=== PATIENT | male | born 1980 | race Caucasian/White ===

== ENCOUNTER 2016-09-18 15:24 | Emergency (ER) | payer MEDICARE, MEDICAID ==
[~2016-09-18] VITALS: Ht 177.8 cm; Wt 127.3 kg
[~2016-09-18 15:24] MED LIST: CALC-190 PO; HYDR-3605 PO; METH5TAB3 PO; MULT-1018 PO; NABU500T PO; OXYC1TAB24 PO
[2016-09-18 15:28] VITALS: BP 135/92; PULSE 97; RESP 20; O2SAT 94
--- NOTE | 2016-09-18 15:45 | ED.REPORT ---
HPI-General Illness Date of Service Sep 18, 2016 ED Provider: Jass Sweeney MD Pt is a 35 y/o male w/ a hx of hemophilia A presenting to the ED due to port-a- cath complications onset 2 days ago. The pt has an 18 year old subcutaneous port -a-cath in his left upper arm and experienced a complication 2 days ago. He takes factor 8 as needed for subjective bleeding and he felt like he was having a bleed in his hip and when he went to administer it, he felt the medication infiltrate his skin. He has no other complaints or concerns at this time. He denies fever, chills, nausea, vomiting. Nursing Notes Stated Complaint: L ARM PORT ISSUES Chief Complaint: General Complaint Nursing Notes Reviewed: Yes Allergies: Coded Allergies: aspirin (Verified Adverse Reaction, Unknown, PT HEMOPHILLIC, 09/18/16) warfarin (Verified Adverse Reaction, Unknown, PT HEMOPHILLIC, 09/18/16) Uncoded Allergies: CRYOPACIPITATE (Adverse Reaction, Severe, COULDNT BREATH,AND RASH, 07/25/15 ) Scheduled Calcium Carb&Cit/Mag12/Vit D3 (Calcium 500 mg Tablet) 1 Each Tablet 1 EACH PO BID Methadone (Methadone) 5 Mg Tablet 5 MG PO BID Multivitamin (Multi Vitamin Daily) 1 Each Tablet 1 EACH PO DAILY Nabumetone (Nabumetone) 500 Mg Tablet 500 MG PO BID Scheduled PRN HydrOXYzine HCl (HydrOXYzine HCl) 10 Mg Tablet 10 MG PO BID PRN PRN For Itching oxyCODONE-Acetaminophen 5-325 mg (oxyCODONE-Acetaminophen 5-325 mg) 1 Each Tablet 1 TAB PO Q4H PRN PRN For Pain General Time Seen by MD: 15:34 Chief Complaint Other (Port complication) Hx Obtained From: Patient Arrived By: Walk-in Sudden in Onset?: No Onset Occurred: 2 days ago Symptom Duration: Since onset Severity: Current: No pain currently Severity: Maximum: No pain Past Medical History Past Medical History Hemophilia A - factor VIII deficiency Past Surgical History Port-a-cath Smoking History Never Smoker Review of Systems +port complication Full Review of Systems Constitutional: Denies: Chills, Fever GI: Denies: Nausea, Vomiting Complete sys rev & neg: except as marked. Physical Exam Vital Signs Vital Signs Date Time Temp Pulse Resp B/P Pulse Ox O2 Delivery O2 Flow Rate FiO2 2/3/17 15:28 36.2 97 20 135/92 94 Room Air Initial VS: Reviewed, Vital signs normal Head / Eyes: Atraumatic, Normocephalic, PERRL ENT: Mucous membranes moist, Conjunctiva normal, No scleral icterus Neck: Supple, Full range of motion Respiratory: Breath sounds normal, Clear to auscultation, No respiratory distress Cardiovascular: Regular rate & rhythm, Heart sounds normal, Intact distal pulses Abdomen / GI: Soft, Non-tender, No guarding, No rebound, No distention Skin: Warm, Dry, No cyanosis Neurologic: Alert, Oriented, Nonfocal Psychiatric: Mood/affect normal, Behavior normal, Normal thought content General/Constitutional: Awake, Alert, No acute distress, Well appearing, Cooperative, Not toxic appearing Appearance / Presentation: Positive: Obese Upper Extremities Upper Extremity / MS: Atraumatic, Full range of motion, No snuffbox tenderness , No erythema, No deformity, Neurologic intact, Vascular intact, No ligamentous injury, No compartment syndrome Port present left upper arm. Ecchymosis overlying port. Port is palpable beneath skin. No signs of infection. Interpretation & Diagnostics X-Ray Interpretation Xray Interpretation: Normal per radiologist - discussed via phone Study Performed: Dye study to assess port-a-cath function Interpretation / Wet Read by: Interpret - Radiologist, Discussed w radiologist Re-Eval/Medical Decision Med Decision/Clinical Course In summary, the patient is a 35-year-old male with a history of hemophilia A and left upper arm Port-A-Cath who presents due to concern that his Port-A-Cath is malfunctioning. He reports that several days ago he went to inject factor VIII into his Port-A-Cath and that he felt like he was infiltrating out around from the Port-A-Cath. He states that he has had this Port-A-Cath for about 18 years and has never had to have it replaced because it has never malfunctioned. Here in the emergency department the patient is afebrile with stable vital signs and examination as above. The presentation is somewhat concerning for disruption of the patient's Port-A-Cath which would not be surprising given that it is 18 years old. Therefore, I opted to obtain a dye study of his Port-A -Cath which demonstrated no disruption of his catheter and extravasation of dye. Updated patient has to these findings. He feels comfortable with discharge home. He will follow-up with his primary care physician next week to discuss his Port-A-Cath as it is quite old and may need to be replaced in the near future. Follow-up and return precautions were reviewed in detail he was discharged in good condition. There was no evidence of other complication with this Port-A-Cath or infection about the Port-A-Cath. Time of Eval: 16:46 Re-Evaluation/Progress Note: Pt rechecked. Informed pt of plan for treatment. Pt understands and agrees with plan for treatment. F/U and RTER warnings given. All questions addressed. Counseled Regarding: Diagnosis, Need for follow-up, When/why to return to ED Discharge & Departure Primary Impression: Vascular port complication Encounter type: initial encounter Qualified Code: T82.9XXA - Unspecified complication of cardiac and vascular prosthetic device, implant and graft, initial encounter Additional Impression: Hemophilia A Disposition: Home Discharge Condition All VS Reviewed: Yes Condition: Stable Patient Instructions: Implanted Venous Access Ports (ED) Additional Instructions: Your port-a-cath dye study today showed no abnormalities. It is unclear what caused the odd sensation you experienced. Follow-up with your primary care provider in 1 week. Return to the emergency department if you are unable to inject your Factor VIII. Referrals: [facility] Scribe Attestation Portions of this note were transcribed by Celio Calabrese. I, Dr. Sweeney personally performed the history, physical exam and medical decision-making; I reviewed and confirmed the accuracy of the information in the transcribed note. Signed by Carlos Eduardo Bassett, 09/18/16 - 1599 Jass Sweeney MD Sep 18, 2016 15:45 CELIO CALABRESE Sep 18, 2016 15:50
--- NOTE | 2016-09-18 16:58 | DRSVH ---
PROCEDURE: X-RAY CATHETER PATENCY STUDY ([id number]) INDICATIONS: Left arm port TECHNIQUE: Iodinated contrast was injected through the patient's existing left passport central veno us catheter, with real-time fluoroscopy performed. COMPARISON: None. FINDINGS: Child Development Teacher view of the chest demonstrates a left passport central venous catheter with tube tip projected over the lower SVC. With contrast administration, there is patency of the catheter noted a nd free spill of contrast media at the distal tube tip with antegrade flow of contrast media into the superior vena cava and the right atrium. There is no extravasation of contrast media along the port or the course of the catheter. The attending physician was personally present in the room during the examination. IMPRESSION: Normal appearance and patency of left passport central venous catheter. Dictated by: Hector Marina [facility] Interpreted: Digna tSanley MD on 09/18/2016 at 16:45 Transcribed by: TEJAL on 09/18/2016 at 16:49 Approved by: Digna Stanley MD, PhD on 09/18/2016 at 16:51
== END 2016-09-18 17:51 | disposition home or self-care (01) ==
LOC: SED 15:24
DX: T82.898A Other specified complication of vascular prosthetic devices, implants and grafts, initial encounter (principal); Y84.8 Other medical procedures as the cause of abnormal reaction of the patient, or of later complication, without mention of misadventure at the time of the procedure; Y93.89 Activity, other specified; Y92.89 Other specified places as the place of occurrence of the external cause; Y99.8 Other external cause status; D66 Hereditary factor VIII deficiency; Z88.8 Allergy status to other drugs, medicaments and biological substances
CPT/HCPCS: 36598; 99283; Q9967

== ENCOUNTER 2016-11-15 16:48 | Emergency (ER) | payer MEDICARE, MEDICAID ==
[~2016-11-15] VITALS: Ht 172.7 cm; Wt 129.6 kg
[2016-11-15 16:52] VITALS: BP 137/95; PULSE 84; RESP 14; O2SAT 95
--- NOTE | 2016-11-15 17:35 | ED.REPORT ---
HPI-General Illness Date of Service Nov 15, 2016 ED Provider: Dr. Quiroga Pt is a 35 year old male with a hx of Factor VIII deficiency and a recent port removal presenting to the ED complaining of left flank pain onset last night, increasing today. He denies any known injury. He states that he needs an infusion because he has bleeding in his back. He does report similar symptoms in the past. Pt usually self administers factor VIII once a month. Nursing Notes Stated Complaint: REQ A FACTOR 8 INFUSION Chief Complaint: General Complaint Nursing Notes Reviewed: Yes Allergies: Coded Allergies: aspirin (Verified Adverse Reaction, Unknown, PT HEMOPHILLIC, 09/18/16) warfarin (Verified Adverse Reaction, Unknown, PT HEMOPHILLIC, 09/18/16) Uncoded Allergies: CRYOPACIPITATE (Adverse Reaction, Severe, COULDNT BREATH,AND RASH, 07/25/15 ) Scheduled Calcium Carb&Cit/Mag12/Vit D3 (Calcium 500 mg Tablet) 1 Each Tablet 1 EACH PO BID Methadone (Methadone) 5 Mg Tablet 5 MG PO BID Multivitamin (Multi Vitamin Daily) 1 Each Tablet 1 EACH PO DAILY Nabumetone (Nabumetone) 500 Mg Tablet 500 MG PO BID Scheduled PRN HydrOXYzine HCl (HydrOXYzine HCl) 10 Mg Tablet 10 MG PO BID PRN PRN For Itching oxyCODONE-Acetaminophen 5-325 mg (oxyCODONE-Acetaminophen 5-325 mg) 1 Each Tablet 1 TAB PO Q4H PRN PRN For Pain General Time Seen by MD: 17:35 Chief Complaint Other Hx Obtained From: Patient Arrived By: Walk-in Sudden in Onset?: No Onset Occurred: Yesterday Symptom Duration: Since onset Quality: Painful Severity: Current: Moderate Severity: Maximum: Moderate Recent Healthcare: No recent doctor visit, No recent hospitalization Similar Sx Previous: Yes Past Medical History Past Medical History Hemophilia A - factor VIII deficiency Past Surgical History Port-a-cath Smoking History Never Smoker Ambulatory Status Independent Review of Systems Full Review of Systems Respiratory: Denies: Shortness of breath GI: Denies: Vomiting Musculoskeletal: Reports: Back pain Complete sys rev & neg: except as marked. Physical Exam Vital Signs Vital Signs Date Time Temp Pulse Resp B/P Pulse Ox O2 Delivery O2 Flow Rate FiO2 11/15/16 16:52 37.2 84 14 137/95 95 Room Air Initial VS: Reviewed Head / Eyes: Atraumatic, Normocephalic, PERRL ENT: Mucous membranes moist, Conjunctiva normal, No scleral icterus Neck: Supple, Non-tender, Full range of motion Respiratory: Breath sounds normal, Clear to auscultation, No respiratory distress Cardiovascular: Regular rate & rhythm, Heart sounds normal, Intact distal pulses Abdomen / GI: Soft, Non-tender, No guarding, No rebound, No distention Skin: Warm, Dry, No cyanosis Neurologic: Alert, Oriented, Nonfocal Psychiatric: Mood/affect normal, Behavior normal, Normal thought content General/Constitutional: Awake, Alert Appearance / Presentation: Positive: Obese Re-Eval/Medical Decision Time of Eval: 17:56 Patient Status: Condition improved Re-Evaluation/Progress Note: Discussed transfer to Dr. Carmona. Consultation : Call Returned at: 18:13 Note: Veronica hemophilia nurse specialist. Treat with 6400 units of Factor 8, will follow up in clinic tomorrow. Counseled Regarding: Diagnosis, Lab results, Need for follow-up, When/why to return to ED Discharge & Departure Primary Impression: Hemophilia A Disposition: Home Discharge Condition All VS Reviewed: Yes Condition: Improved Referrals: NOPCP (PCP) (Family) Care Transferred to: Transferred to Dr. Carmona Care Transferred at: 18:00 Carlos Eduardo Attestation Portions of this note were transcribed by Sulema Rogers. I, Dr. Quiroga personally performed the history, physical exam and medical decision-making; I reviewed and confirmed the accuracy of the information in the transcribed note. Signed by: Carlos Eduardo Hull, 11/15/2016 at 1756. Brock Quiroga DO Nov 15, 2016 17:35 SULEMA ROGERS Nov 15, 2016 17:49
[2016-11-15] MEDS ORDERED: Ondansetron 2 mg/mL 2 mL Inj IVPUSH ONE (17:50)
[2016-11-15] MEDS ORDERED: FACTOR VIII IV ONE (19:10)
[2016-11-15 20:14] VITALS: BP 152/96; PULSE 77; RESP 16; O2SAT 100
== END 2016-11-15 20:15 | disposition home or self-care (01) ==
LOC: SED 16:48
DX: D66 Hereditary factor VIII deficiency (principal); Z79.82 Long term (current) use of aspirin; Z79.01 Long term (current) use of anticoagulants

== ENCOUNTER 2016-12-10 12:14 | Emergency (ER) | payer MEDICARE, MEDICAID ==
[~2016-12-10] VITALS: Ht 177.8 cm; Wt 129.6 kg
[2016-12-10 12:15] VITALS: BP 158/104; PULSE 104; RESP 18; O2SAT 96
--- NOTE | 2016-12-10 12:17 | ED.REPORT ---
HPI-Extremity Problem Upper Date of Service Dec 10, 2016 ED Provider: Dr. Coy Pt is a 35 year old male with a hx of hemophilia presenting to the ED complaining of right shoulder pain onset last night. Associated symptoms include numbness and tingling, shooting pain, and swelling in his shoulder. He denies any other symptoms at this time. He reports that he must have slept wrong on his shoulder, and that this happens all the time. Pt has not administered any factor yet, just pain medication. Nursing Notes Stated Complaint: RIGHT SHOULDER PAIN Chief Complaint: General Complaint Nursing Notes Reviewed: Yes (Button, Gem[employer] not reconciled) Allergies: Coded Allergies: aspirin (Verified Adverse Reaction, Unknown, PT HEMOPHILLIC, 12/10/16) warfarin (Verified Adverse Reaction, Unknown, PT HEMOPHILLIC, 12/10/16) Uncoded Allergies: CRYOPACIPITATE (Adverse Reaction, Severe, COULDNT BREATH,AND RASH, 07/25/15 ) Scheduled Calcium Carb&Cit/Mag12/Vit D3 (Calcium 500 mg Tablet) 1 Each Tablet 1 EACH PO BID Methadone (Methadone) 5 Mg Tablet 5 MG PO BID Multivitamin (Multi Vitamin Daily) 1 Each Tablet 1 EACH PO DAILY Nabumetone (Nabumetone) 500 Mg Tablet 500 MG PO BID Scheduled PRN HydrOXYzine HCl (HydrOXYzine HCl) 10 Mg Tablet 10 MG PO BID PRN PRN For Itching oxyCODONE-Acetaminophen 5-325 mg (oxyCODONE-Acetaminophen 5-325 mg) 1 Each Tablet 1 TAB PO Q4H PRN PRN For Pain General Time Seen by MD: 12:16 Chief Complaint Shoulder injury right Hx Obtained From: Patient Arrived By: Walk-in Onset Occurred: Yesterday Symptom Duration: Since onset Location: : Shoulder right Quality: Painful Severity: Current: Moderate Severity: Maximum: Moderate Recent Healthcare: No recent doctor visit, No recent hospitalization Similar Sx Previous: Yes Past Medical History Past Medical History Hemophilia A - factor VIII deficiency Past Surgical History Port-a-cath Smoking History Never Smoker Ambulatory Status Independent Review of Systems Musculoskeletal: Reports: Joint pain (Right shoulder), Joint swelling Neurologic: Reports: Numbness Complete sys rev & neg: except as marked. Respiratory: Denies: Shortness of breath Cardiovascular: Denies: Chest pain Physical Exam Initial Vital Signs Vital Signs (First) Date Time Temp Pulse Resp B/P Pulse Ox O2 Delivery O2 Flow Rate FiO2 12/10/16 12:15 36.4 104 18 158/104 96 Room Air Initial VS: Reviewed, Unavailable (no vitals on chart) Head / Eyes: Atraumatic, Normocephalic, PERRL ENT: Mucous membranes moist, Conjunctiva normal, No scleral icterus Respiratory: Breath sounds normal, Clear to auscultation, No respiratory distress Cardiovascular: Regular rate & rhythm, Heart sounds normal, Intact distal pulses Abdomen / GI: Soft, Non-tender, No guarding, No rebound, No distention Lower Extremities: Vascular intact, Neuro intact, No swelling, No tenderness Skin: Warm, Dry, No cyanosis Neurologic: Alert, Oriented, Nonfocal Psychiatric: Mood/affect normal, Behavior normal, Normal thought content General/Constitutional: Awake, Alert, No acute distress, Well appearing Upper Extremity / MS: No deformity, Neurologic intact, Vascular intact Right Shoulder: Positive: ROM reduced, Tenderness present... (Mild), Negative: Ecchymosis present Holding arm Adducted. No massive swelling or visible ecchymosis. Pain with ROM. 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 He denies any major traumatic event or injury. His weakness paresthesias, denies fevers or chills. Reports he needs a transfusion of this factor-any brings in with him the factor and the dose, he reports he used to be able to administer home see a port-but the port failed and had to be removed, and IV be able to be administered the factor. Exam, the patient's in some discomfort, but there is no massive swelling of the shoulder, no clinical findings have dislocation, arms are neurovascularly intact. The patient again states he has had this happen multiple times-and does not recommend imaging, I think that is reasonable. Pharmacy, IV access was obtained, and the patient was dosed with this factor. He does receive a single dose of oxycodone, reports he has plenty of pain medicine at home. He is being discharged in stable condition. He was noted to be moderately hypertensive, which is unusual recently recurrent pain, and the need for follow-up was discussed. Patient is discharged in improved condition. Source of Hx: Old records Re-Evaluation/Progress : Time of Eval: 14:30 Patient Status: Condition improved Re-Evaluation/Progress Note: Pt feeling much better, ready to go home. Discussed plan for discharge. Differential Diagnosis: Negative: Abrasion, Abscess, Amputation, Arterial occlus/ischemia, Cellulitis, Compartment syndrome Counseled Regarding: Diagnosis, Lab results, Need for follow-up, When/why to return to ED Discharge & Departure Disposition: Home Discharge Condition All VS Reviewed: Yes Condition: Improved Additional Instructions: Your blood pressure was a little high today so I would recommend that you follow up with your primary care doctor for that. Return to the ER if you develop any new or worsening symptoms. Referrals: NOPCP (PCP) [facility] Scribnan Attestation Portions of this note were transcribed by Sulema Rogers. I, Dr. Coy personally performed the history, physical exam and medical decision-making; I reviewed and confirmed the accuracy of the information in the transcribed note. Signed by: Carlos Eduardo Hull, 12/10/2016 at [Time]. copies to: [facility] Claus Coy MD Dec 10, 2016 12:17 SULEMA ROGERS Dec 10, 2016 12:25
[2016-12-10] MEDS ORDERED: [UNRECOGNIZED DRUG - OTHER] IV ONE ×2 (13:35→13:50)
[2016-12-10] MEDS ORDERED: oxyCODONE-Acetamin 5-325 mg Tablet PO ONE (14:10)
[2016-12-10 14:31] VITALS: BP 149/94; PULSE 84; RESP 16; O2SAT 95
[2016-12-10 14:39] VITALS: BP 149/94; PULSE 84; RESP 16; O2SAT 95
== END 2016-12-10 14:45 | disposition home or self-care (01) ==
LOC: SED 12:14
DX: M25.011 Hemarthrosis, right shoulder (principal); D66 Hereditary factor VIII deficiency; R20.0 Anesthesia of skin; R20.2 Paresthesia of skin; Z88.8 Allergy status to other drugs, medicaments and biological substances